=== PATIENT | female | born 1965 | race Caucasian/White ===

== ENCOUNTER → 2020-12-12 | Day surgery (SDC) | payer MEDICARE ==
[~2020-12-12] VITALS: Ht 157.5 cm; Wt 52.3 kg
[~2020-12-12] MED LIST: ASPIRIN EC325 MG PO; BACLOFEN 10MG T10 MG PO; MELATONIN5 M2 PO; OLOPATADINE HC2.5 ML EYEBOTH; TRAMADOL HCL50 MG PO
== END | disposition home or self-care (01) ==
LOC: FAS 09:11
DX: Z45.2 Encounter for adjustment and management of vascular access device (principal); C50.912 Malignant neoplasm of unspecified site of left female breast; G62.9 Polyneuropathy, unspecified; I89.0 Lymphedema, not elsewhere classified; Z79.82 Long term (current) use of aspirin; I50.9 Heart failure, unspecified; M81.0 Age-related osteoporosis without current pathological fracture; Z98.51 Tubal ligation status; Z87.891 Personal history of nicotine dependence
CPT/HCPCS: J2001; J2250; J2704; J7120